=== PATIENT | male | born 1960 | race Caucasian/White ===

== ENCOUNTER 2022-11-02 11:41 | Outpatient (CLI) | payer OTHER, SELFPAY ==
--- NOTE | 2022-11-02 | ECG_ITS ---
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 Interpretive Statements NAME OF STUDY: TREADMILL STRESS TEST INDICATION: Dyspnea, PROCEDURE: At the baseline, the patient's blood pressure was 136/84 with a heart rate of 72. The baseline electrocardiogram showed normal sinus rhythm with normal ST-Ts.. The patient exercised for 7 minutes and 30 seconds on a standard Alo protocol. Patient attained a maximum heart rate of 142 beats per minute(88% of the maximum predicted heart rate) with a blood pressure at the peak exercise of 188/90 mm Hg. The EKG at the peak exercise revealed no significant changes. Patient did not have any chest pain or any significant cardiac arrhythmias with the exercise During the recovery phase, there were no new changes. Blood pressure at the end of the recovery phase was 166/86 mm Hg with a heart rate of 86 per minute. CONCLUSION: 1. Normal EKG response to treadmill exercise 2. No exercise-induced chest pain or cardiac arrhythmia 3. Fair exercise tolerance, attained a maximum of 10.2 METs Electronically Signed On 11-06-2022 22:55:55 CDT by Sharad Rodriguez M.[email or web address]
[2022-11-02 11:58] VITALS: BMI 26.4
[2022-11-02 12:31] VITALS: BP 166/86; PULSE 86
== END 2022-11-02 11:42 | disposition home or self-care (01) ==
PROVIDERS: PCP Family Medicine; Visit Provider Family Medicine
DX: R06.09 Other forms of dyspnea (principal)
CPT/HCPCS: 93017